=== PATIENT | female | born 1945 | race Caucasian/White ===

== ENCOUNTER 2016-08-07 07:36 | Day surgery (SDC) | payer MEDICARE, OTHER ==
[~2016-08-07] VITALS: Ht 167.6 cm; Wt 88.0 kg
[~2016-08-07 07:36] MED LIST: ALBU8.5H2 INHALATION; ATEN50TA PO; BUPR150T12 PO; CALC500T61 PO; CETI10TA18 PO; CRES20T PO; CYCL10TA9 PO; FLUO10CA20 PO; GABA-502 PO; GLIM4TAB2 PO; LEVO25TA5 PO; LOSA100T29 PO; LUTE20TA PO; NITR100C PO; OMEG500C3 PO; OXYC1TAB24 PO; PHEN-777 PO; POTA10TA38 PO; QUIN324C4 PO; RANI150C4 PO; RES15 PO; SITA50TA PO; Sodium Chloride LOK Flush 10 mL Syringe IV PRN; VIT1CAPS10 PO; ZYL100 PO; fentaNYL-PF 50 mCg/mL 2 mL Inj IVPUSH PRN
[2016-08-07 08:02] VITALS: BP 150/56; PULSE 71; RESP 16; O2SAT 98
[2016-08-07] MEDS: 0.9% Sodium Chloride 1,000 ML IV SCH ×3 (08:16→08:42)
[2016-08-07 08:51] VITALS: BP 95/56; PULSE 68; RESP 16; O2SAT 95
[2016-08-07 09:01] VITALS: BP 98/52; PULSE 63; RESP 14; O2SAT 95
--- NOTE | 2016-08-07 09:09 | ENDO ---
[address] [address] ENDOSCOPY PROCEDURE PATIENT: ALLAN CLIFTON : 1945 MR#: [id number] ADMIT: 08/07/2016 JOB ID: [id number] DATE OF SERVICE: 08/07/2016 PREOPERATIVE DIAGNOSIS(ES): Colorectal cancer screening. POSTOPERATIVE DIAGNOSIS(ES): 1. Melanosis coli. 2. Minimal left-sided diverticulosis. OPERATION: Colonoscopy to cecum. SURGEON: Toi May MD. INDICATIONS: A 71-year-old female, who 10 years ago underwent colorectal cancer screening. Approximately 15 years ago, I performed a sigmoid colectomy for diverticulitis. She is now returning for colorectal cancer screening. FINDINGS: She had a fair prep. Vigorous irrigation was performed. She had a few left-sided diverticula. She had diffuse melanosis coli. The cecal landmarks identified. No neoplastic or vascular or inflammatory lesions identified. Retroflexed views of the rectum were normal. DESCRIPTION OF PROCEDURE: The procedure and sedation plan was discussed with the patient and nursing staff, and a procedural time-out was held. She received 3 mg of Versed and 75 mcg of fentanyl. A digital rectal exam was performed. The Olympus PCF-H180AL video colonoscope was passed transanally, advanced to the cecum, withdrawn with results as stated above. Retroflexed views of the rectum were obtained. There were no complications. The patient tolerated the procedure well. IMPRESSION: 1. Minimal left-sided diverticulosis and melanosis coli. 2. Otherwise normal colonoscopy to cecum. RECOMMENDATIONS: If the patient is otherwise doing well, she should have a repeat colonoscopy in 10 years.
[2016-08-07 09:13] VITALS: BP 115/58; PULSE 66; RESP 16; O2SAT 97
== END 2016-08-07 23:59 | disposition home or self-care (01) ==
LOC: END 07:36
PROVIDERS: ATTEND Surgery
DX: Z12.11 Encounter for screening for malignant neoplasm of colon (principal); K63.89 Other specified diseases of intestine; K57.30 Diverticulosis of large intestine without perforation or abscess without bleeding; K59.00 Constipation, unspecified; I73.9 Peripheral vascular disease, unspecified; K21.9 Gastro-esophageal reflux disease without esophagitis; F41.9 Anxiety disorder, unspecified; F32.9 Major depressive disorder, single episode, unspecified; I65.29 Occlusion and stenosis of unspecified carotid artery; Z85.828 Personal history of other malignant neoplasm of skin; G25.81 Restless legs syndrome
CPT/HCPCS: G0121; G0500; J2250; J3010; J7030